=== PATIENT | male | born 1990 | race Asian ===

== ENCOUNTER 2018-02-17 08:35 | Emergency (ER) | payer OTHER ==
[2018-02-17 08:42] VITALS: TEMP 98.1; O2SAT 98
[2018-02-17] MEDS ORDERED: ONDANSETRON 4 MG/2 ML VIAL IVP ONE (09:06)
[2018-02-17] MEDS ORDERED: NS 1,000 ML IV ONE ×2 (09:06→10:22)
--- NOTE | 2018-02-17 09:19 | EDPHY ---
H & P Stated Complaint: N/V/D and epigastric pain since 1am. - Personal History Current Tetanus Diphtheria and Acellular Pertussis (TDAP): No - Medical/Surgical History Hx Asthma: No Hx Chronic Respiratory Disease: No Hx Diabetes: No Hx Cardiac Disease: No Hx Renal Disease: No Hx Cirrhosis: No Hx Alcoholism: No Hx HIV/AIDS: No Hx Splenectomy or Spleen Trauma: No Other PMH: High cholestrol. - Social History Smoking Status: Never smoked Time Seen by Provider: 02/17/18 08:56 HPI/ROS: CHIEF COMPLAINT: Nausea vomiting diarrhea HISTORY OF PRESENT ILLNESS: 27-year-old male generally healthy , no history of abdominal surgeries or chronic abdominal pathology, states that at 8 p.m. last night he felt felt some mild stomach discomfort and was hungry, ate Mick food, went to bed, 1:00 a.m. awoke with vomiting and midline epigastric pain and later developed diarrhea. He is currently complaining of nausea with no abdominal pain. No history of heavy alcohol use. No history of similar. No back or flank pain. No urinary abnormality. No testicular pain. No dyspnea. No cough. No antecedent illness. REVIEW OF SYSTEMS: A ten point review of systems was performed and is negative with the exception of the items mentioned in the HPI PAST MEDICAL & SURGICAL HISTORY: No pertinent medical or surgical history SOCIAL HISTORY: No heavy alcohol use PHYSICAL EXAM (Prior to examination, patient consented to physical exam, hands were washed and my usual and customary physical exam procedures followed) 1) GENERAL: Well-developed, well-nourished, alert and oriented. Appears nontoxic, appears to be in good spirits 2) HEAD: Normocephalic, atraumatic 3) HEENT: Pupils equal, round, reactive to light bilaterally. Sclera anicteric. Nasopharynx, oropharynx, clear, no lesions. Dry mucous membranes. Ears bilaterally with normal tympanic membranes. 4) NECK: Full range of motion, no meningeal signs. 5) LUNGS: Clear auscultation bilaterally, no wheezes, no rhonchi, no retractions. 6) HEART: Regular rate and rhythm, no murmur, no heave, no gallop. 7) ABDOMEN: No guarding, no rebound, no focal tenderness, negative McBurney's, negative Alejo's, negative Rovsing's, negative peritoneal sign, I am unable to elicit any abdominal pain on exam 8) MUSCULOSKELETAL: Moving all extremities, no focal areas of tenderness, no obvious trauma. No peripheral edema or discoloration. 9) BACK: No CVA tenderness, no midline vertebral tenderness, no fluctuance, no step-off, no obvious trauma, no visual or palpable abnormality. 10) SKIN: No rash, no petechiae. 11) Psychiatric: Patient is oriented X 3, there is no agitation. DIFFERENTIAL DIAGNOSIS: My differential diagnosis includes, but is not limited to, acute appendicitis, acute cholecystitis, bowel obstruction, acute pancreatitis,, gastritis a. The patient understands that this diagnosis is provisional and can never be 100% accurate. This is a partial list of diagnoses considered. These considerations are based on history, physical exam, past history and reassessment. (Bethany Salas) Constitutional: Initial Vital Signs Temperature (C) 36.7 C 02/17/18 08:37 Heart Rate 99 02/17/18 08:37 Respiratory Rate 20 02/17/18 08:37 Blood Pressure 121/82 H 02/17/18 08:37 O2 Sat (%) 98 02/17/18 08:37 O2 Delivery Mode Room Air Allergies/Adverse Reactions: No Known Allergies Allergy (Unverified 02/17/18 08:42) Home Medications: Medication Instructions Recorded Ondansetron Odt [Zofran Odt] 4 mg PO Q4PRN PRN #10 tab 02/17/18 Medical Decision Making ED Course/Re-evaluation: 9:18 a.m.: Patient has no complaints of abdominal pain and has a nontender abdomen. Will plan on IV hydration for volume depletion and antiemetic and check laboratory studies. Care of patient under supervision of secondary supervising physician Dr Suad Malloy. 9:57 a.m.: Patient's laboratory results positive for elevated H and H which I suspect are more than likely secondary to hemoconcentration in the setting of volume depletion. In addition he is noted to have an elevated BUN creatinine ratio of 21 which is consistent with volume depletion. Will continue IV hydration and re-evaluate. 12:02 p.m.: Re-evaluation. Repeat CBC and chemistry show improvement in the patient's abnormal laboratory studies which I think are more likely secondary to acute volume depletion. He has been provided with IV hydration and is able tolerate oral intake. I re-examined his abdomen at this time which remained soft no guarding no rebound no McBurney's point pain. I have unable to elicit any abdominal pain on exam. I do not think that imaging studies as abdomen are currently indicated. Plan will be discharge home with usual customary abdominal precautions instructions as well as recommendation of establishing primary care provider. He feels comfortable being discharged. (Bethany Salas) The patient was evaluated and managed by the physician conservation assistant. I have reviewed this chart and I agree with the findings and plan of care as documented , as indicated by my signature. I am the secondary supervising physician. ( Suad Malloy) - Data Points Laboratory Results: Laboratory Results 02/17/18 11:20 02/17/18 11:20 Medications Given: Discontinued Medications Sodium Chloride (Ns) 1,000 mls @ 0 mls/hr IV ONCE ONE PRN Reason: Wide Open Stop: 02/17/18 09:07 Last Admin: 02/17/18 09:10 Dose: 1,000 mls Sodium Chloride (Ns) 1,000 mls @ 0 mls/hr IV ONCE ONE PRN Reason: Wide Open Stop: 02/17/18 10:23 Last Admin: 02/17/18 10:24 Dose: 1,000 mls Ondansetron HCl (Zofran) 4 mg IVP EDNOW ONE Stop: 02/17/18 09:07 Last Admin: 02/17/18 09:10 Dose: 4 mg Departure - Departure Disposition: Home, Routine, Self-Care Clinical Impression: Nausea vomiting and diarrhea, Volume depletion Condition: Good Instructions: Acute Nausea and Vomiting (ED), Acute Diarrhea (ED) Additional Instructions: Seek immediate medical attention if you develop new or worsening symptoms, if you develop fevers, chills, inability to tolerate oral intake or any other symptoms that concerns you. Referrals: Jessie Leyva [place] [place] - 1 day, if not improved Prescriptions: Ondansetron Odt [Zofran Odt] 4 mg PO Q4PRN PRN #10 tab PRN Reason: Nausea
[2018-02-17 09:44] LABS: PLATELET COUNT 261 10^3/uL (150-400)
[2018-02-17 11:29] LABS: PLATELET COUNT 208 10^3/uL (150-400)
[2018-02-17 12:30] VITALS: PULSE 94; RESP 16
[2018-02-17 12:31] VITALS: BP 95/59
== END 2018-02-17 12:30 | disposition home or self-care (01) ==
DX: R11.2 Nausea with vomiting, unspecified (principal); R19.7 Diarrhea, unspecified; E86.9 Volume depletion, unspecified
CPT/HCPCS: 96374; J2405